=== PATIENT | female | born 1945 | race American Indian/Alaskan Native ===

== ENCOUNTER 2019-01-01 03:13 | Emergency (ER) | payer MEDICARE ==
[2019-01-01 03:46] LABS: Basophils % (Auto) 0.5 % (0.0-1.8); Eosinophils # (Auto) 0.2 K/mm3 (0.0-0.4); Eosinophils % (Auto) 2.2 % (0.0-4.3); Hematocrit 36.7 % (30.3-42.9); Lymphocytes # (Auto) 2.1 K/mm3 (1.2-5.4); Lymphocytes % (Auto) 24.9 % (13.4-35.0); Mean Corpuscular HGB Conc 33 % (30-34); Mean Corpuscular Volume 84 fl (79-97); Monocytes # (Auto) 0.6 K/mm3 (0.0-0.8); Platelet Count 187 K/mm3 (140-440); Red Blood Count 4.37 M/mm3 (3.65-5.03); Red Cell Distribution Width 16.4 % (13.2-15.2)
[2019-01-01 04:28] LABS: Bilirubin,Urine NEG (Negative); Blood,Urine NEG (Negative); Color,Urine Yellow (Yellow); Protein,Urine <15 mg/dL mg/dL (Negative); Urobilinogen,Urine < 2.0 mg/dL (<2.0); WBC,Urine < 1.0 /HPF (0.0-6.0)
[2019-01-01 04:36] LABS: Alanine Aminotransferase 14 units/L (7-56); Albumin 4.3 g/dL (3.9-5); BUN/Creatinine Ratio 19; Blood Urea Nitrogen 15 mg/dL (7-17); Calcium 9.2 mg/dL (8.4-10.2); Hemolysis Index 3
[2019-01-01] MEDS ORDERED: ZOFRAN IV ONE (04:48)
[2019-01-01] MEDS ORDERED: MORPHINE IV ONE (04:48)
[2019-01-01] MEDS ORDERED: NACL 0.9% 1000 ML 1,000 ML IV ONE (04:48)
[2019-01-01] MEDS ORDERED: ALUM-MAG HYDROX-SIMETH 200-200-20MG/5ML PO ONE (04:50)
[2019-01-01] MEDS ORDERED: PROTONIX IV ONE (04:50)
--- NOTE | 2019-01-01 04:53 | Emergency Department Report ---
ED Abdominal Pain HPI - General Chief Complaint: Abdominal Pain Stated Complaint: ABD PAIN/VOMITING Time Seen by Provider: 01/01/19 04:48 Source: patient Mode of arrival: Wheelchair Limitations: No Limitations - History of Present Illness Initial Comments: The patient is a 73 y.o -[place] female who presents to the E.R. complaining of epigastric pain that began 2 hrs ago while at rest. Symptoms have been intermittent since onset and pt rates them as severe in severity. Patient reports the symptoms are located in her upper abdomen and describes the quality as sharp. Pain radiates to throat. Symptoms associated with nausea, but denies any fever, vomiting, hematemesis, melena or hematochezia. Symptoms are improved with nothing and exacerbated by eating. Patient reports history of similar symptoms. Onset/Timin -: hour(s) Location: epigastric Migration to: no migration Severity scale (0 -10): 7 Quality: stabbing, aching Consistency: constant Improves With: nothing Worsens With: eating Associated Symptoms: nausea. denies: vomiting, diarrhea, chills, dysuria - Related Data Previous Rx's Medication Instructions Recorded Last Taken Type Ibuprofen [Motrin 800 MG tab] 800 mg PO ONCE PRN #15 tablet 09/04/15 Unknown Rx Lisinopril [Zestril TAB] 10 mg PO QDAY #30 tablet 01/01/19 Unknown Rx Allergies Allergy/AdvReac Type Severity Reaction Status Date / Time No Known Allergies Allergy Unverified 09/04/15 12:31 ED Review of Systems ROS: Stated complaint: ABD PAIN/VOMITING Other details as noted in HPI Comment: All other systems reviewed and negative Constitutional: denies: chills Eyes: denies: eye pain ENT: denies: ear pain, throat pain Respiratory: denies: cough, orthopnea Cardiovascular: denies: chest pain, palpitations, dyspnea on exertion Gastrointestinal: abdominal pain, nausea. denies: vomiting, diarrhea Genitourinary: denies: as per HPI, urgency, dysuria Skin: denies: rash ED Past Medical Hx - Past Medical History Hx Hypertension: Yes Hx Psychiatric Treatment: Yes (depression) Additional medical history: "poor circulation" - Surgical History Past Surgical History?: Yes Additional Surgical History: left hand - Social History Smoking Status: Current Every Day Smoker Substance Use Type: None - Medications Home Medications: Home Medications Medication Instructions Recorded Confirmed Last Taken Type Ibuprofen [Motrin 800 MG tab] 800 mg PO ONCE PRN #15 tablet 09/04/15 Unknown Rx Lisinopril [Zestril TAB] 10 mg PO QDAY #30 tablet 01/01/19 Unknown Rx ED Physical Exam - General Limitations: No Limitations General appearance: alert, in no apparent distress - Head Head exam: Present: atraumatic - Eye Eye exam: Present: normal appearance, PERRL, EOMI Pupils: Present: normal accommodation - ENT ENT exam: Present: normal exam - Neck Neck exam: Present: normal inspection, tenderness - Respiratory Respiratory exam: Present: normal lung sounds bilaterally - Cardiovascular Cardiovascular Exam: Present: regular rate - GI/Abdominal GI/Abdominal exam: Present: soft, tenderness (epigastric area) - Rectal Rectal exam: Present: deferred - External exam: Present: normal external exam - Extremities Exam Extremities exam: Present: normal inspection ED Course Vital Signs 01/01/19 01/01/19 01/01/19 03:18 05:30 05:33 Temperature 97.6 F Pulse Rate 101 H 102 H Respiratory 20 16 16 Rate Blood Pressure Blood Pressure 165/96 182/91 [Left] O2 Sat by Pulse 99 100 Oximetry 01/01/19 01/01/19 01/01/19 07:07 07:16 08:00 Temperature Pulse Rate 84 96 H Respiratory 13 18 Rate Blood Pressure 182/91 156/89 157/94 Blood Pressure [Left] O2 Sat by Pulse 99 98 100 Oximetry ED Medical Decision Making - Lab Data Result diagrams: 01/01/19 03:26 01/01/19 03:23 Critical care attestation.: If time is entered above; I have spent that time in minutes in the direct care of this critically ill patient, excluding procedure time. ED Disposition Clinical Impression: Enteritis Abdominal pain Qualifiers: Abdominal location: generalized Qualified Code(s): R10.84 - Generalized abdomi nal pain Hypertension Qualifiers: Hypertension type: unspecified Qualified Code(s): I10 - Essential (primary) hypertension Disposition: TO HOME OR SELFCARE Is pt being admited?: No Does the pt Need Aspirin: No Condition: Stable Instructions: Abdominal Pain (ED), Hypertension (ED) Additional Instructions: Follow-up with your primary care provider. Clear fluids as tolerated. Return any acute change or problem or significant recurrent symptoms. Prescriptions: Lisinopril [Zestril TAB] 10 mg PO QDAY #30 tablet Referrals: usual, primary care doctor in [place] [Other] - 2-3 Days HARSHAL KAN MD [Primary Care Provider] - 3-5 Days Forms: Accompanied Note
--- NOTE | 2019-01-01 06:59 | Cat Scan Report ---
PROCEDURE: CT ABDOMEN PELVIS W CON TECHNIQUE: Computerized axial tomography of the abdomen and pelvis was performed after the IV inject ion of iodinated nonionic contrast. CT DOSE LENGTH PRODUCT: mGycm HISTORY: abd pain COMPARISONS: None . FINDINGS: Visualized lower thorax: No significant abnormality. Liver: Normal size and attenuation. Spleen: Normal size and attenuation. Gallbladder and biliary system: Normal. Pancreas: Normal. Adrenals: Normal. Kidneys: Normal. GI tract: There are scattered uncomplicated diverticula in the colon. The appendix appears normal. T he small bowel reveals multiple mildly distended loops of ileum in the pelvis without discrete transi tion point. The findings may be on the basis of a nonspecific enteritis. . Lymph nodes and mesentery: Normal. Vasculature: Normal.. Bladder: There is generalized bladder wall thickening. Underlying cystitis cannot be excluded.. Reproductive organs: Hysterectomy.. Peritoneum: No free fluid. Musculoskeletal structures: No significant abnormality. Other: None . IMPRESSION: Multiple mildly distended loops of ileum in the pelvis without transition point. A mild enteritis can not be excluded. No evidence of bowel obstruction. Scattered uncomplicated colonic diverticula. Generalized bladder wall thickening. Underlying cystitis cannot be excluded. Hysterectomy. This document is electronically signed by Ronny Faust MD., Jan 01 2019 06:57:02 AM ET
--- NOTE | 2019-01-01 08:07 | Emergency Department Report ---
Sharon Doc - Documentation Documentation: Patient seen and managed by Dr. Means was signed out for pending review of CT findings. Patient returned from the CT suite essentially asymptomatic. She told me that she participated in a graduation celebration for a family member which was at the [facility]. She developed abdominal cramping began in the upper abdomen but migrated to involve the abdomen diffusely. This has resolved. She did vomit once. She denied diarrhea. Fact she had a normal bowel movement prior to arrival. Review the patient's CT findings shows mildly distended loops of ileum in the pelvis "a mild enteritis cannot be excluded". There is no evidence of bowel obstruction. Uncomplicated diverticula. Bladder wall thickening. Exam Patient is in no distress Regular rhythm and rate without murmur Clear to auscultation Abdomen soft and nontender. Normal bowel sounds are appreciated. There is no guarding or distention no organomegaly Patient's urinalysis is essentially negative for laboratory tests do not show any real addressable abnormality. An EKG was obtained that showed normal sinus rhythm and left atrial enlargement left ventricular hypertrophy but no evidence of acute ischemia. Diagnostic impression Abdominal pain Consider enteritis Plan I do not think the patient would benefit from hospitalization. Symptoms have essentially resolved. Laboratory Results - last 24 hr 01/01/19 01/01/19 01/01/19 03:23 03:26 05:30 WBC 8.5 RBC 4.37 Hgb 12.0 Hct 36.7 MCV 84 MCH 28 MCHC 33 RDW 16.4 H Plt Count 187 Lymph % (Auto) 24.9 [place] % (Auto) 7.0 Eos % (Auto) 2.2 Baso % (Auto) 0.5 Lymph # 2.1 [place] # 0.6 Eos # 0.2 Baso # 0.0 Seg Neutrophils % 65.4 Seg Neutrophils # 5.5 Sodium 142 Potassium 4.0 Chloride 103.5 Carbon Dioxide 27 Anion Gap 16 BUN 15 Creatinine 0.8 Estimated GFR > 60 BUN/Creatinine Ratio 19 Glucose 111 H Calcium 9.2 Total Bilirubin < 0.20 AST 15 ALT 14 Alkaline Phosphatase 96 Troponin T < 0.010 Total Protein 7.4 Albumin 4.3 Albumin/Globulin Ratio 1.4 Lipase 56 Urine Color Urine Turbidity Urine pH Ur Specific [place] Urine Protein Urine Glucose (UA) Urine Ketones Urine Blood Urine Nitrite Urine Bilirubin Urine Urobilinogen Ur Leukocyte Esterase Urine WBC (Auto) Urine RBC (Auto) 05/24/19 Unknown WBC RBC Hgb Hct MCV MCH MCHC RDW Plt Count Lymph % (Auto) [place] % (Auto) Eos % (Auto) Baso % (Auto) Lymph # [place] # Eos # Baso # Seg Neutrophils % Seg Neutrophils # Sodium Potassium Chloride Carbon Dioxide Anion Gap BUN Creatinine Estimated GFR BUN/Creatinine Ratio Glucose Calcium Total Bilirubin AST ALT Alkaline Phosphatase Troponin T Total Protein Albumin Albumin/Globulin Ratio Lipase Urine Color Yellow Urine Turbidity Clear Urine pH 6.0 Ur Specific [place] 1.017 Urine Protein <15 mg/dl Urine Glucose (UA) Neg Urine Ketones Neg Urine Blood Neg Urine Nitrite Neg Urine Bilirubin Neg Urine Urobilinogen < 2.0 Ur Leukocyte Esterase Neg Urine WBC (Auto) < 1.0 Urine RBC (Auto) 4.0 Above labs reasonably good. She will be discharged for follow-up with her primary care provider. She is given return criteria.
[2019-01-01 08:16] VITALS: BP 157/94
== END 2019-01-01 08:32 ==
LOC: EDBD → ED 03:13
DX: R10.13 Epigastric pain (principal); R11.0 Nausea; I10 Essential (primary) hypertension; F17.200 Nicotine dependence, unspecified, uncomplicated
CPT/HCPCS: 36415; 74177; 80053; 81001; 83690; 84484; 85025; 93005; 93010; 96374; 96375; 99284; C9113; J2270; J2405; J7030; Q9967; 96361